=== PATIENT | female | born 1985 ===

== ENCOUNTER 2018-07-02 10:21 | Emergency (ER) | payer MEDICAID ==
[2018-07-02 10:29] VITALS: O2SAT 98
--- NOTE | 2018-07-02 10:48 | C.PDOC ---
History Of Present Illness 32 year old female presents to the ED for evaluation of swelling to the left side of her face and dental discomfort which has been progressive for the past 3 days. Patient reports trouble breathing through her left nostril. She recently moved from [place] and has not been evaluated by a dentist. Patient denies fever, chills, cough, runny nose, nausea and vomiting. Time Seen by Provider: 07/02/18 10:39 Chief Complaint (Nursing): Dental Pain History Per: Patient History/Exam Limitations: no limitations Onset/Duration Of Symptoms: Days (3) Current Symptoms Are (Timing): Worse Quality: Positive for: "Pain" Additional History Per: Patient Past Medical History Reviewed: Historical Data, Nursing Documentation, Vital Signs Vital Signs: Last Vital Signs Temp 98.5 F 07/02/18 10:26 Pulse 74 07/02/18 10:26 Resp 18 07/02/18 10:26 BP 105/73 07/02/18 10:26 Pulse Ox 98 07/02/18 10:26 - Medical History PMH: No Chronic Diseases Surgical History: No Surg Hx Family History: States: Unknown Family Hx - Social History Hx Alcohol Use: No Hx Substance Use: No - Immunization History Hx Tetanus Toxoid Vaccination: No Hx Influenza Vaccination: No Hx Pneumococcal Vaccination: No Review Of Systems Constitutional: Negative for: Fever, Chills ENT: Positive for: Other (left-sided facial swelling, difficulty breathing through left nostril ). Negative for: Nose Discharge Respiratory: Negative for: Cough Gastrointestinal: Negative for: Nausea, Vomiting Physical Exam - Physical Exam Appears: Non-toxic, No Acute Distress Skin: Normal Color, Warm, Dry Head: Atraumatic, Other (swelling and erythema to left side of face. face appears deviated to right side , secondary to significant edema ) Eye(s): bilateral: Normal Inspection Ear(s): Bilateral: Normal Nose: Normal, No Discharge Oral Mucosa: Moist Tongue: Normal Appearing Lips: Normal Appearing, No Swelling Teeth: Other (missing last molar on left upper teeth. no significant dental decay) Throat: Normal, No Erythema, No Exudate, No Drooling Neck: Normal ROM, Supple Neurological/Psych: Oriented x3, Normal Speech, Normal Cognition ED Course And Treatment O2 Sat by Pulse Oximetry: 98 (on RA) Pulse Ox Interpretation: Normal Medical Decision Making Medical Decision Making: Impression: 32 year old female with left facial swelling and dental pain Plan: * Motrin PO * Penicillin PO * reassess and disposition Progress: Motrin PO and Penicillin PO given. Update: Spoke with the patients assigned dentist who agreed to see the patient tomorrow. Patient is stable for discharge home. Prescribed Motrin and Penicillin. Disposition - Disposition Disposition: HOME/ ROUTINE Disposition Time: 11:47 Condition: STABLE Prescriptions: Ibuprofen [Motrin] 600 mg PO TID #15 tab Penicillin VK [Penicillin VK Tab] 2 tab PO BID #28 tab Instructions: Tooth Abscess (DC) Forms: [employer] ([place]), General Discharge Instructions - POA Present On Arrival: None - Clinical Impression Clinical Impression: Dental abscess - Scribe Statement The provider has reviewed the documentation as recorded by the Scribe (Estrella Sanches) Provider Attestation: All medical record entries made by the Scribe were at my direction and personally dictated by me. I have reviewed the chart and agree that the record accurately reflects my personal performance of the history, physical exam, medical decision making, and the department course for this patient. I have also personally directed, reviewed, and agree with the discharge instructions and disposition.
[2018-07-02 11:53] VITALS: BP 106/71; PULSE 67; RESP 20; TEMP 98.4
== END 2018-07-02 11:53 | disposition home or self-care (01) ==
LOC: C.ER 10:21
DX: K04.7 Periapical abscess without sinus (principal)